=== PATIENT | female | born 1950 | race Caucasian/White ===

== ENCOUNTER 2022-01-26 08:43 | Emergency (ER) | payer MEDICARE, OTHER ==
--- NOTE | 2022-01-26 09:19 | ED ---
General Adult HPI - General Chief complaint: Shortness of Breath Stated complaint: SOB Time Seen by Provider: 01/26/22 08:50 Source: patient, EMS, RN notes reviewed, old records reviewed Mode of arrival: EMS Limitations: no limitations - History of Present Illness Initial comments: 71-year-old female with an episode of dyspnea this morning. She states that for the past 1 week she's had cough and nasal congestion she has been taking decongestant. She denies fever. She denies chest pain. Her symptoms are resolved at the time my evaluation. She states she feels better. She states she was unable to take a deep breath. She does note some swelling to the lower extremities which is worse on the left. no Significant past medical history. - Related Data Home Medications Medication Instructions Recorded Confirmed Apixaban [Eliquis] 5 mg PO BID 01/26/22 01/26/22 Clotrimazole/Betameth Cream 1 applic TOPICAL HS 01/26/22 01/26/22 [Lotrisone] Metoprolol Tartrate [Lopressor] 50 mg PO BID 01/26/22 01/26/22 Multivitamins, Thera [Multivitamin 1 tab PO DAILY 01/26/22 01/26/22 (formulary)] glipiZIDE XL [Glucotrol XL] 2.5 mg PO DAILY 01/26/22 01/26/22 ursodioL [Ursodiol] 300 mg PO BID-W/MEALS 01/26/22 01/26/22 Allergies Allergy/AdvReac Type Severity Reaction Status Date / Time desvenlafaxine AdvReac elevated Verified 01/26/22 10:31 liver enzymes meperidine [From Demerol] AdvReac passed out Verified 01/26/22 10:31 Review of Systems ROS Statement: Those systems with pertinent positive or pertinent negative responses have been documented in the HPI. ROS Other: All systems not noted in ROS Statement are negative. Past Medical History Past Medical History: Atrial Fibrillation, Diabetes Mellitus, Hyperlipidemia, Liver Disease, Osteoarthritis (OA) Additional Past Medical History / Comment(s): hearing loss History of Any Multi-Drug Resistant Organisms: None Reported Past Surgical History: Breast Surgery Additional Past Surgical History / Comment(s): 2 births, left breast biopsy ' Past Psychological History: Depression Smoking Status: Former smoker Past Alcohol Use History: None Reported Past Drug Use History: None Reported General Exam Limitations: no limitations General appearance: alert, in no apparent distress Head exam: Present: atraumatic, normocephalic Eye exam: Present: normal appearance, PERRL ENT exam: Present: normal exam Neck exam: Present: normal inspection. Absent: tenderness, meningismus Respiratory exam: Present: normal lung sounds bilaterally. Absent: respiratory distress, wheezes Cardiovascular Exam: Present: regular rate, normal rhythm GI/Abdominal exam: Present: soft. Absent: distended, tenderness, guarding Extremities exam: Present: normal capillary refill, pedal edema. Absent: calf tenderness Neurological exam: Present: alert, oriented X3, CN II-XII intact. Absent: motor sensory deficit Psychiatric exam: Present: normal affect, normal mood Skin exam: Present: warm, dry, intact. Absent: cyanosis, diaphoretic Course Vital Signs 01/26/22 01/26/22 01/26/22 08:51 08:58 10:07 Temperature 98.0 F Pulse Rate 65 84 Respiratory 16 16 16 Rate Blood Pressure 151/107 135/74 O2 Sat by Pulse 96 96 Oximetry - Reevaluation(s) Reevaluation #1: 01/26/22 11:34 Symptoms are resolved during her entire stay in the emergency department without complaint. EKG Findings - EKG Comments: EKG Findings:: EKG: Sinus rhythm rate of 66, WA interval 185, QRS duration 77, QTC 427, no ST segment elevation. Medical Decision Making - Medical Decision Making 71-year-old female with an episode of dyspnea. This was resolved at the time of my initial evaluation. Patient had reported some upper respiratory symptoms over the past one week. Influenza and cold are negative. Chest x-ray does show mild CHF with trace bilateral effusions and some pulmonary vascular congestion. However her BMP is only 1000. She has a negative troponin. General mildly elevated d-dimer and therefore CT angiography was performed which is negative fo r pulmonary embolism or acute findings. She remains on room air without complaint during her stay in the emergency department. She states that she had an echocardiogram recently but is uncertain of the results. I do recommend she has a repeat ultrasound. She should follow with her primary care physician and her tool marker. Return parameters were discussed at length. - Lab Data Result diagrams: 01/26/22 09:15 01/26/22 09:15 Lab Results 01/26/22 01/26/22 01/26/22 Range/Units 09:15 09:15 09:15 WBC 8.1 (3.8-10.6) k/uL RBC 4.54 (3.80-5.40) m/uL Hgb 14.5 (11.4-16.0) gm/dL Hct 46.8 H (34.0-46.0) % MCV 103.1 H (80.0-100.0) fL MCH 31.9 (25.0-35.0) pg MCHC 30.9 L (31.0-37.0) g/dL RDW 12.8 (11.5-15.5) % Plt Count 157 (150-450) k/uL MPV 9.3 Neutrophils % 74 % Lymphocytes % 17 % Monocytes % 6 % Eosinophils % 1 % Basophils % 1 % Neutrophils # 6.0 (1.3-7.7) k/uL Lymphocytes # 1.3 (1.0-4.8) k/uL Monocytes # 0.5 (0-1.0) k/uL Eosinophils # 0.1 (0-0.7) k/uL Basophils # 0.0 (0-0.2) k/uL Macrocytosis Slight PT 10.4 (9.0-12.0) sec INR 1.0 (<1.2) APTT 25.5 (22.0-30.0) sec D-Dimer 0.68 H (<0.60) mg/L FEU Sodium 140 (137-145) mmol/L Potassium 4.2 (3.5-5.1) mmol/L Chloride 108 H (98-107) mmol/L Carbon Dioxide 26 (22-30) mmol/L Anion Gap 6 mmol/L BUN 14 (7-17) mg/dL Creatinine 0.74 (0.52-1.04) mg/dL Est GFR (CKD-EPI)AfAm >90 (>60 ml/min/1.73 sqM) Est GFR (CKD-EPI)NonAf 81 (>60 ml/min/1.73 sqM) Glucose 131 H (74-99) mg/dL Plasma Lactic Acid Jarrell (0.7-2.0) mmol/L Calcium 9.1 (8.4-10.2) mg/dL Magnesium 1.8 (1.6-2.3) mg/dL Total Bilirubin 1.3 (0.2-1.3) mg/dL AST 27 (14-36) U/L ALT 26 (4-34) U/L Alkaline Phosphatase 153 H (38-126) U/L Troponin I (0.000-0.034) ng/mL NT-Pro-B Natriuret Pep pg/mL Total Protein 6.9 (6.3-8.2) g/dL Albumin 3.9 (3.5-5.0) g/dL Coronavirus (PCR) (Not Detectd) Influenza Type A RNA (Not Detectd) Influenza Type B (PCR) (Not Detectd) 01/26/22 01/26/22 01/26/22 Range/Units 09:15 09:15 09:15 WBC (3.8-10.6) k/uL RBC (3.80-5.40) m/uL Hgb (11.4-16.0) gm/dL Hct (34.0-46.0) % MCV (80.0-100.0) fL MCH (25.0-35.0) pg MCHC (31.0-37.0) g/dL RDW (11.5-15.5) % Plt Count (150-450) k/uL MPV Neutrophils % % Lymphocytes % % Monocytes % % Eosinophils % % Basophils % % Neutrophils # (1.3-7.7) k/uL Lymphocytes # (1.0-4.8) k/uL Monocytes # (0-1.0) k/uL Eosinophils # (0-0.7) k/uL Basophils # (0-0.2) k/uL Macrocytosis PT (9.0-12.0) sec INR (<1.2) APTT (22.0-30.0) sec D-Dimer (<0.60) mg/L FEU Sodium (137-145) mmol/L Potassium (3.5-5.1) mmol/L Chloride (98-107) mmol/L Carbon Dioxide (22-30) mmol/L Anion Gap mmol/L BUN (7-17) mg/dL Creatinine (0.52-1.04) mg/dL Est GFR (CKD-EPI)AfAm (>60 ml/min/1.73 sqM) Est GFR (CKD-EPI)NonAf (>60 ml/min/1.73 sqM) Glucose (74-99) mg/dL Plasma Lactic Acid Jarrell 1.1 (0.7-2.0) mmol/L Calcium (8.4-10.2) mg/dL Magnesium (1.6-2.3) mg/dL Total Bilirubin (0.2-1.3) mg/dL AST (14-36) U/L ALT (4-34) U/L Alkaline Phosphatase (38-126) U/L Troponin I <0.012 (0.000-0.034) ng/mL NT-Pro-B Natriuret Pep 1010 pg/mL Total Protein (6.3-8.2) g/dL Albumin (3.5-5.0) g/dL Coronavirus (PCR) (Not Detectd) Influenza Type A RNA (Not Detectd) Influenza Type B (PCR) (Not Detectd) 01/26/22 01/26/22 Range/Units 09:15 09:15 WBC (3.8-10.6) k/uL RBC (3.80-5.40) m/uL Hgb (11.4-16.0) gm/dL Hct (34.0-46.0) % MCV (80.0-100.0) fL MCH (25.0-35.0) pg MCHC (31.0-37.0) g/dL RDW (11.5-15.5) % Plt Count (150-450) k/uL MPV Neutrophils % % Lymphocytes % % Monocytes % % Eosinophils % % Basophils % % Neutrophils # (1.3-7.7) k/uL Lymphocytes # (1.0-4.8) k/uL Monocytes # (0-1.0) k/uL Eosinophils # (0-0.7) k/uL Basophils # (0-0.2) k/uL Macrocytosis PT (9.0-12.0) sec INR (<1.2) APTT (22.0-30.0) sec D-Dimer (<0.60) mg/L FEU Sodium (137-145) mmol/L Potassium (3.5-5.1) mmol/L Chloride (98-107) mmol/L Carbon Dioxide (22-30) mmol/L Anion Gap mmol/L BUN (7-17) mg/dL Creatinine (0.52-1.04) mg/dL Est GFR (CKD-EPI)AfAm (>60 ml/min/1.73 sqM) Est GFR (CKD-EPI)NonAf (>60 ml/min/1.73 sqM) Glucose (74-99) mg/dL Plasma Lactic Acid Jarrell (0.7-2.0) mmol/L Calcium (8.4-10.2) mg/dL Magnesium (1.6-2.3) mg/dL Total Bilirubin (0.2-1.3) mg/dL AST (14-36) U/L ALT (4-34) U/L Alkaline Phosphatase (38-126) U/L Troponin I (0.000-0.034) ng/mL NT-Pro-B Natriuret Pep pg/mL Total Protein (6.3-8.2) g/dL Albumin (3.5-5.0) g/dL Coronavirus (PCR) Not Detected (Not Detectd) Influenza Type A RNA Not Detected (Not Detectd) Influenza Type B (PCR) Not Detected (Not Detectd) Disposition Clinical Impression: Dyspnea Disposition: HOME SELF-CARE Condition: Fair Instructions (If sedation given, give patient instructions): Dyspnea (ED) Additional Instructions: Please follow up with her tool marker. Please return the emergency department with worsening or changing symptoms. Is patient prescribed a controlled substance at d/c from ED?: No Referrals: Delano Krishnamurthy MD [Primary Care Provider] - 1-2 days Time of Disposition: 11:33
[2022-01-26 09:47] LABS: Basophils % (A) 1 %; Eosinophils # (A) 0.1 k/uL (0-0.7); Eosinophils % (A) 1 %; HCT 46.8 % (34.0-46.0); HGB 14.5 gm/dL (11.4-16.0); Lymphocytes # (A) 1.3 k/uL (1.0-4.8); Lymphocytes % (A) 17 %; MCH 31.9 pg (25.0-35.0); MCHC 30.9 g/dL (31.0-37.0); MCV 103.1 fL (80.0-100.0); Macrocytosis Slight; Mean Platelet Volume 9.3; Monocytes # (A) 0.5 k/uL (0-1.0); Monocytes % (A) 6 %; Neutrophils % (A) 74 %; Platelet Count 157 k/uL (150-450); RBC 4.54 m/uL (3.80-5.40); RDW 12.8 % (11.5-15.5); WBC 8.1 k/uL (3.8-10.6)
[2022-01-26 10:03] LABS: Partial Thromboplastin Time 25.5 sec (22.0-30.0); Prothrombin Time 10.4 sec (9.0-12.0)
[2022-01-26 10:04] LABS: ALT 26 U/L (4-34); AST 27 U/L (14-36); African American GFR (CKD) >90 (>60 ml/min/1.73 sqM); Albumin 3.9 g/dL (3.5-5.0); Alkaline Phosphatase 153 U/L (38-126); Anion Gap 6 mmol/L; Blood Urea Nitrogen 14 mg/dL (7-17); Calcium 9.1 mg/dL (8.4-10.2); Carbon Dioxide 26 mmol/L (22-30); Chloride 108 mmol/L (98-107); Glucose 131 mg/dL (74-99); Magnesium 1.8 mg/dL (1.6-2.3); Non-African American GFR(CKD) 81 (>60 ml/min/1.73 sqM); Potassium 4.2 mmol/L (3.5-5.1); Sodium 140 mmol/L (137-145); Total Bilirubin 1.3 mg/dL (0.2-1.3); Total Protein 6.9 g/dL (6.3-8.2)
--- NOTE | 2022-01-26 10:06 | XR ---
EXAMINATION TYPE: XR chest 2V DATE OF EXAM: 01/26/2022 COMPARISON: NONE HISTORY: Shortness of breath TECHNIQUE: Frontal and lateral views of the chest are obtained. FINDINGS: Scattered senescent parenchymal changes noted. Hyperinflation compatible with COPD. There is pulmonary venous congestion with scattered interstitial curly B lines and small effusions pineda ggesting mild congestive failure. Correlate clinically. The heart is at the upper limits of normal level with regards to size. Mediastinal structures are stable and grossly unremarkable. No evidence for hilar prominence. Degenerative changes dorsal spine. IMPRESSION: 1. There is pulmonary venous congestion with scattered interstitial curly B lines and small effusions suggesting mild congestive failure. Correlate clinically.
--- NOTE | 2022-01-26 11:13 | CT ---
EXAMINATION TYPE: CT angio chest DATE OF EXAM: 01/26/2022 COMPARISON: None HISTORY: Difficulty breathing and elevated d-dimer. CT DLP: 437.8 mGycm CONTRAST: CT chest with contrast and 3D reconstruction with MIP imaging is performed with IV Contrast, patient injected with 72ml mL of Isovue 370. Contrast-enhanced CT of the chest was performed through the course of the pulmonary arteries with prakash g and mediastinal window settings submitted. 3D reconstruction with MIP imaging was also performed. PULMONARY ARTERIES: The pulmonary arteries and their major tributaries are patent. I do not see lisa dence for sizable filling defect to suggest pulmonary embolic process. LUNGS: The lungs are clear and free of infiltrate. No evidence for atelectasis. No pulmonary nodule or mass is detected. Small moderate bilateral pleural effusions with maximal AP dimension on the rig ht of 3.4 cm and on the left 2.7 cm. Basilar compressive atelectasis. MEDIASTINUM: Thoracic aorta is of normal caliber,however, evaluation is limited given timing of the contrast bolus. If there is concern for thoracic aortic pathology consider LOAN. Correlate clinicall y . The heart is not enlarged. No evidence for mediastinal mass. No mediastinal lymph nodes greater than 1cm. HILAR STRUCTURES: No evidence for mass. No hilar lymph nodes greater than 1 cm. UPPER ABDOMEN: No significant abnormality is seen. IMPRESSION: 1. No evidence for Pulmonary embolism at this time.
[2022-01-26 11:47] VITALS: BP 143/72; PULSE 65; RESP 18; TEMP 98.1
== END 2022-01-26 11:46 | disposition home or self-care (01) ==
LOC: EC 08:43
DX: R06.00 Dyspnea, unspecified (principal); E11.9 Type 2 diabetes mellitus without complications; Z87.891 Personal history of nicotine dependence; Z20.822 Contact with and (suspected) exposure to COVID-19; Z88.1 Allergy status to other antibiotic agents; Z88.5 Allergy status to narcotic agent
CPT/HCPCS: 36415; 93005; 85379; 83880; 80053; 83605; 83735; 84484; 85025; 85610; 85730; 87502; 87635; 71046; 71275; 99285; Q9967